=== PATIENT | female | born 1995 | race Two or more races ===

== ENCOUNTER 2023-06-25 13:37 | Emergency (ER) | payer BC, OTHER ==
[~2023-06-25] VITALS: Ht 162.6 cm; Wt 65.0 kg
[2023-06-25] MEDS ORDERED: KETOROLAC TROMETH 30 MG/ML 1ML VIAL IV ONE (14:15)
[2023-06-25] MEDS ORDERED: METH-1182 PO (14:48)
[2023-06-25] MEDS ORDERED: IBUP-1456 PO (14:48)
[2023-06-25 14:51] VITALS: BP 115/80; PULSE 104; RESP 20; TEMP 98; O2SAT 96
== END 2023-06-25 14:58 | disposition home or self-care (01) ==
LOC: EDBD 13:37 → ER 13:37
DX: S46.911A Strain of unspecified muscle, fascia and tendon at shoulder and upper arm level, right arm, initial encounter (principal); S53.401A Unspecified sprain of right elbow, initial encounter; F17.210 Nicotine dependence, cigarettes, uncomplicated; Z88.7 Allergy status to serum and vaccine; V49.9XXA Car occupant (driver) (passenger) injured in unspecified traffic accident, initial encounter; Y93.89 Activity, other specified; Y92.89 Other specified places as the place of occurrence of the external cause; Y99.8 Other external cause status
CPT/HCPCS: 73030; 73080; 96374; 99284; J1885